=== PATIENT | male | born 1980 | race Caucasian/White ===

== ENCOUNTER 2020-05-22 02:15 | Emergency (ER) | payer OTHER ==
[~2020-05-22] VITALS: Ht 180.3 cm; Wt 74.8 kg
[2020-05-22 02:15] VITALS: BP 114/93
--- NOTE | 2020-05-22 02:15 | NUR ---
PT [place] [employer], PREBOOK. TAKEN TO BED 9
[2020-05-22] MEDS ORDERED: MIDAZOLAM 2 MG/2 ML VIAL IM ONE (02:25)
[2020-05-22] MEDS ORDERED: HALOPERIDOL IM 5 MG/ML VIAL IM ONE (02:25)
--- NOTE | 2020-05-22 02:30 | NUR ---
LAB AT BEDSIDE, ABLE TO COLLECT BLOOD.
--- NOTE | 2020-05-22 02:45 | NUR ---
PT MEDICATED PER MD ORDERS, REMAINS ON BEDSIDE MONITOR. [place] [employer] REMAIN AT BEDSIDE.
[2020-05-22 02:50] LABS: ANION GAP 16.7 (8-16); CARBON DIOXIDE 21.3 mmol/L (21-32); CREATININE 0.9 mg/dL (0.6-1.3)
[2020-05-22 02:59] LABS: BASOPHILS # (AUTO) 0.1 K/uL (0.00-0.22); BASOPHILS % (AUTO) 0.8 % (0.0-2.0); EOSINOPHILS # (AUTO) 0.2 K/uL (0-0.4); EOSINOPHILS % (AUTO) 2.4 % (0.0-4.0); HEMATOCRIT 41.2 % (36-52); LYMPHOCYTES # (AUTO) 3.2 K/uL (2.0-11.5); LYMPHOCYTES % (AUTO) 33.4 % (20.5-51.1); MEAN CORPUSCULAR HEMOGLOBIN 29 pg (27-31); MEAN CORPUSCULAR HGB CONC 34 g/dL (33-37); MONOCYTES % (AUTO) 10.8 % (1.7-9.3); NEUTROPHILS % (AUTO) 52.6 % (42.2-75.2); PLATELET COUNT (AUTO) 319 K/uL (140-450); RED BLOOD CELL COUNT(AUTO) 4.91 MIL/uL (4.20-6.10); RED CELL DISTRIBUTION WIDTH 13.9 % (11.6-13.7); WHITE BLOOD COUNT (AUTO) 9.5 K/uL (4.8-10.8)
[2020-05-22 03:17] LABS: CKMB RELATIVE INDEX 2.7 (0.0-2.5); CREATINE KINASE MB 13.6 ng/mL (0-3.6)
--- NOTE | 2020-05-22 05:28 | NUR ---
PT REMAINS ON BEDSIDE MONITOR, VS WNL. PT SLEEPING, RESPIRATIONS REGULAR, EVEN, AND UNLABORED. WILL CONTINUE TO MONITOR.
--- NOTE | 2020-05-22 05:46 | NUR ---
CALLED BOTH NUMBERS ON PTS DATA INFO FOR NEXT OF KIN TO COME PICK HIM UP, , NUMBER IS TO A BUSINESS AND OTHER NUMBER HAS BEEN DISCONNECTED.
--- NOTE | 2020-05-22 06:06 | NUR ---
PT CHANGED INTO DISPOSABLE SCRUBS AND SOCKS, ASKED FOR PHONE NUMBER TO CALL FAMILY OR FRIENDS TO COME PICK HIM UP. HE SAID HE LIVES WITHIN WALKING DISTANCE AND DOESN'T WANT TO CALL ANYONE.
--- NOTE | 2020-05-22 06:36 | NUR ---
ATTEMPTED TO ROAD TEST PATIENT, PT UNSTEADY ON HIS FEET AT THIS TIME. WILL PASS ON CARE AND DISCHARGE OF PATIENT TO AM SHIFT
[2020-05-22 07:16] VITALS: BP 105/68
--- NOTE | 2020-05-22 07:17 | NUR ---
Patient discharged with v/s stable. Written and verbal after care instructions given and explained. Patient verbalized understanding. Ambulatory with steady gait. All questions addressed prior to discharge. Advised to follow up with PMD.
--- NOTE | 2020-05-22 07:17 | NUR ---
PT WAS GIVEN DISCHARGE PAPERWORK AND HIS YELLOW NOTICE TO APPEAR BY ANGELICA ALARCON.
== END 2020-05-22 07:17 | disposition home or self-care (01) ==
LOC: MED 02:15
DX: F05 Delirium due to known physiological condition (principal); F15.129 Other stimulant abuse with intoxication, unspecified; F10.129 Alcohol abuse with intoxication, unspecified
CPT/HCPCS: 36415; 80048; 82550; 82553; 85025; 96372; 99284; J1630; J2250

== ENCOUNTER 2020-06-02 20:42 | Emergency (ER) | payer OTHER, SELFPAY ==
[~2020-06-02] VITALS: Ht 180.3 cm; Wt 70.3 kg
--- NOTE | 2020-06-02 21:05 | NUR ---
BRENDAN HATHAWAY OBTAINED AND WALKED OVER TO LAB.
--- NOTE | 2020-06-02 21:10 | NUR ---
PT IN TENT. POSITIVE COVID SCREEN.
[2020-06-02 21:20] VITALS: BP 141/84
[2020-06-02 21:25] VITALS: BP 141/84
== END 2020-06-02 21:20 | disposition home or self-care (01) ==
LOC: MED 20:42
DX: M79.10 Myalgia, unspecified site (principal); R50.9 Fever, unspecified; Z20.828 Contact with and (suspected) exposure to other viral communicable diseases
CPT/HCPCS: 99283; U0003